=== PATIENT | female | born 1995 | race American Indian/Alaskan Native ===

== ENCOUNTER 2016-06-04 13:58 | Emergency (ER) | payer SELFPAY ==
[2016-06-04 14:42] LABS: Basophils % (Auto) 0.5 % (0.0-1.8); Eosinophils % (Auto) 1.1 % (0.0-4.3); Hematocrit 47.3 % (30.3-42.9); Hemoglobin 15.5 gm/dl (10.1-14.3); Mean Corpuscular HGB Conc 33 % (30-34); Mean Corpuscular Hemoglobin 26 pg (28-32); Mean Corpuscular Volume 81 fl (79-97); Platelet Count 282 K/mm3 (140-440); Red Blood Count 5.86 M/mm3 (3.65-5.03); White Blood Count 6.3 K/mm3 (4.5-11.0)
[2016-06-04 15:17] LABS: BUN/Creatinine Ratio 14.28; Blood Urea Nitrogen 10 mg/dL (7-17); Calcium 9.4 mg/dL (8.4-10.2); Carbon Dioxide 27 mmol/L (22-30); Glucose 88 mg/dL (65-100)
[2016-06-04 15:18] LABS: Alanine Aminotransferase 24 units/L (7-56); Albumin 4.3 g/dL (3.9-5); Albumin/Globulin Ratio 1.2 %; Alkaline Phosphatase 81 units/L (35-129); Anion Gap 19 mmol/L; Bilirubin,Total 0.7 mg/dL (0.1-1.2); Chloride 97.2 mmol/L (98-107); Lipase 29 units/L (13-60); Potassium 4.5 mmol/L (3.6-5.0); Sodium 139 mmol/L (137-145)
[2016-06-04 16:36] VITALS: BP 147/99
--- NOTE | 2016-06-04 16:36 | Emergency Department Report ---
ED Dizziness HPI - General Chief Complaint: Abdominal Pain Stated Complaint: NAUSEA/DIZZY Source: patient Mode of arrival: Ambulatory Limitations: No Limitations - History of Present Illness Initial Comments: 21-year-old female past medical history none presents with complaint of 3 isolated episodes of dizziness lasting 2-3 minutes at a time this morning. Patient states she woke up her usual state of health and experienced dizziness, sensation of room spinning. This lasted for a few minutes then went away on its own. Patient experienced 2 other episodes this morning/afternoon with similar symptoms. States that during second episode she had gotten up out of bed and felt the sensation of dizziness almost immediately. Denies any associated diaphoresis chest pain palpitations no shortness of breath denies any headache no paresthesias upper or lower extremities. Denies any abdominal pain states that she felt slightly nauseous with the first 2 episodes of dizziness. Patient is awake alert and oriented 3 not in acute distress well- appearing conversant fully lucid. Patient states she does not currently have any symptoms. Patient is fully ambulatory without assistance. Patient denies any recent fever chills cough no complaints of dysuria. Denies any recent travel. MD Complaint: dizziness -: This morning, This afternoon Timing: sudden onset Description: "room spinning" History of Same: No History of Trauma: No Severity: moderate Improves With: nothing Worsens With: position Associated Symptoms: denies other symptoms - Related Data Previous Rx's Medication Instructions Recorded Last Taken Type Meclizine [Antivert] 12.5 mg PO BID PRN #20 tablet 06/04/16 Unknown Rx Allergies Allergy/AdvReac Type Severity Reaction Status Date / Time bacitracin Allergy Rash Verified 06/04/16 14:07 [From Neosporin ([id number])] bacitracin zinc Allergy Rash Verified 06/04/16 14:07 [From Neosporin ([id number])] neomycin sulfate Allergy Rash Verified 06/04/16 14:07 [From Neosporin ([id number])] polymyxin B Allergy Rash Verified 06/04/16 14:07 [From Neosporin ([id number])] ED Review of Systems ROS: Stated complaint: NAUSEA/DIZZY Other details as noted in HPI Constitutional: denies: chills, fever Eyes: denies: eye pain, eye discharge, vision change ENT: denies: ear pain, throat pain Respiratory: denies: cough, shortness of breath, wheezing Cardiovascular: denies: chest pain, palpitations Endocrine: no symptoms reported Gastrointestinal: denies: abdominal pain, nausea, diarrhea Genitourinary: denies: urgency, dysuria, discharge Musculoskeletal: denies: back pain, joint swelling, arthralgia Skin: denies: rash, lesions Neurological: denies: headache, weakness, paresthesias Psychiatric: denies: anxiety, depression Hematological/Lymphatic: denies: easy bleeding, easy bruising ED Past Medical Hx - Medications Home Medications: Home Medications Medication Instructions Recorded Confirmed Last Taken Type Meclizine [Antivert] 12.5 mg PO BID PRN #20 tablet 06/04/16 Unknown Rx ED Physical Exam - General Limitations: No Limitations General appearance: alert, in no apparent distress - Head Head exam: Present: atraumatic, normocephalic - Eye Eye exam: Present: normal appearance, PERRL, EOMI - ENT ENT exam: Present: normal exam, mucous membranes moist, TM's normal bilaterally , normal external ear exam - Neck Neck exam: Present: normal inspection - Respiratory Respiratory exam: Present: normal lung sounds bilaterally. Absent: respiratory distress - Cardiovascular Cardiovascular Exam: Present: regular rate, normal rhythm. Absent: systolic murmur, diastolic murmur, rubs, gallop - GI/Abdominal GI/Abdominal exam: Present: soft, normal bowel sounds - Extremities Exam Extremities exam: Present: normal inspection - Back Exam Back exam: Present: normal inspection - Neurological Exam Neurological exam: Present: alert, oriented X3, CN II-XII intact, normal gait - Expanded Neurological Exam Expanded Patient oriented to: Present: person, place, time Speech: Present: fluid speech Cerebellar function: Finger to Nose: Normal, Heel to Briggs: Normal, Romberg: Normal Motor strength exam: RUE: 5, LUE: 5, RLE: 5, LLE: 5 DTR: bicep (R): 3+, bicep (L): 3+, tricep (R): 3+, tricep (L): 3+, knee (R): 3+ , knee (L): 3+, ankle (R): 3+, ankle (L): 3+ Best Eye Response (Weston): (4) open spontaneously Best Motor Response (Weston): (6) obeys commands Best Verbal Response (Weston): (5) oriented Weston Total: 15 - Psychiatric Psychiatric exam: Present: normal affect, normal mood - Skin Skin exam: Present: warm, dry, intact, normal color. Absent: rash ED Course Vital Signs 06/04/16 06/04/16 14:07 16:36 Temperature 98.6 F Pulse Rate 91 H 85 Respiratory 18 18 Rate Blood Pressure 145/106 Blood Pressure 147/99 [Left] O2 Sat by Pulse 99 99 Oximetry ED Medical Decision Making - Lab Data Result diagrams: 06/04/16 14:29 06/04/16 14:29 - Medical Decision Making A/P: Dizziness 1- EKG, CBC, CMP, UA WNL 2- Case d/w Dr. Cabral. I performed Sheldon-Hallpike maneuver, positive, dizziness reproduced. HINT Exam shows no nystagmus in primary, right, and left gaze. Skew test negative both eyes, abnormal Head Impulse test (which is reassuring). 3- I advised patient to follow up with primary care as soon as possible. I also advised her to return to the ED if she experiences any severe headache, severe lightheadedness, chest pain palpitations shortness of breath persistent nausea or vomiting, fever or chills him a dysuria associated with dizziness. Patient understood these instructions and agreed to follow up with primary care. Upon reexamination and time of discharge patient does not endorse any of these symptoms and does not endorse any abdominal pain or nausea. 4- Meclizine when necessary Critical care attestation.: If time is entered above; I have spent that time in minutes in the direct care of this critically ill patient, excluding procedure time. ED Disposition Clinical Impression: Dizziness Disposition: DISCHARGED TO HOME OR SELFCARE Is pt being admited?: No Does the pt Need Aspirin: No Condition: Stable Instructions: Vertigo (ED), Lightheadedness (ED), Dizziness (ED) Prescriptions: Meclizine [Antivert] 12.5 mg PO BID PRN #20 tablet PRN Reason: Vertigo Referrals: PRIMARY CARE, [Primary Care Provider] - 3-5 Days PIYUSH CORDERO MD [Staff Physician] - 3-5 Days [facility] [Outside] - 3-5 Days Forms: Accompanied Note, Work/School Release Form(ED) Time of Disposition: 18:03
[2016-06-04 17:37] LABS: Bacteria,Urine 1+ /HPF (Negative); Bilirubin,Urine NEG (Negative); Blood,Urine NEG (Negative); Ketones,Urine TR mg/dL (Negative); Leukocyte Esterase,Urine SM (Negative); Mucus,Urine 2+ /HPF; Nitrite,Urine NEG (Negative); Protein,Urine <15 mg/dL mg/dL (Negative); Urobilinogen,Urine < 2.0 mg/dL (<2.0)
== END 2016-06-04 18:18 | disposition home or self-care (01) ==
LOC: ED 13:58
DX: R42 Dizziness and giddiness (principal)
CPT/HCPCS: 36415; 80053; 81001; 81025; 83690; 85025; 93005; 93010; 99283